=== PATIENT | female | born 1970 | race Caucasian/White ===

== ENCOUNTER 2017-01-27 00:49 | Emergency (ER) | payer BC ==
--- OUTSIDE RECORDS SUMMARY | 2017-01-27 01:27 | XMS REPORT | Continuity of Care Document ---
:1970 Author Organization [facility] ([facility]) [place] [address] Phone [phone] Care Team Providers Name Role Phone Ghazala Yepez Primary Care Provider [phone] Source Comments This disclosure is being made pursuant to the Care Everywhere program, applicable federal and state laws, and may not contain all informaitonavailable regarding this patient.[facility] ([facility]) Active Allergies and Adverse Reactions Not on File Current Medications Not on file Active Problems Not on file Social History Tobacco Use Types Packs/Day Years Used Date Never Assessed Plan of Care Health Maintenance Due Date Last Done Comments Hepatitis B Vaccine (1 of 3 - Primary Series) 1970 Tdap Vaccine 1981 Lipid Disorder Screening 1988 MMR Vaccine 1988 Td Vaccine 1988 Cervical Cancer Screening 2000 Mammogram 2010 Influenza Vaccine: Seasonal (#1) 03/19/2016 Results from Last 3 Months Not on file
--- NOTE | 2017-01-27 01:29 | ERNOTE ---
Upper Extremity HPI - Narrative Date of Service: 01/27/17 - General Time Seen by Provider: 01/27/17 01:21 Source: patient Exam Limitations: no limitations - Immun/Allergies/Home Medications Immunizations: IMMUNIZATION HX Immunizations Up to Date Yes History of Influenza Vaccine Yes Hx Pneumococcal Vaccination No Allergies/Adverse Reactions: Allergies Allergy/AdvReac Type Severity Reaction Status Date / Time doxycycline Allergy Unknown leg cramps Verified 08/20/15 07:04 Home Medications: HOME MEDICATIONS Calcium Carbonate [Calcium] 500 mg PO BID 01/30/15 [Last Taken Unknown] Cetirizine HCl/Pseudoephedrine [Zyrtec-D Tablet] 1 each PO BID 01/30/15 [Last Taken Unknown] Gabapentin [Neurontin] 600 mg PO TID 01/30/15 [Last Taken Unknown] Multivitamin [Poly-Vitamin] 1 each PO DAILY 01/30/15 [Last Taken Unknown] Omeprazole [Prilosec] 20 mg PO DAILY 01/30/15 [Last Taken Unknown] Ondansetron [Zofran Odt] 4 mg PO Q6H PRN #20 tab 01/31/15 [Last Taken Unknown] - History of Present Illness Narrative: Was riding a large horse when the horse stepped into a hole and rolled onto her. The horse then stood up and off of her. She immediately had pain in the posterior left chest and anterior lateral pectoralis area. It increased pain with deep inspiration. She denies any head injury, leg/pelvis pain, or LOC. Occurred: just prior to arrival Review of Systems - Review of Systems Constitutional: Present: no symptoms reported EYE: Present: no symptoms reported ENT: Present: no symptoms reported Respiratory: Present: no symptoms reported Cardiology: Present: no symptoms reported Gastrointestinal/Abdominal: Present: no symptoms reported Genitourinary: Present: no symptoms reported Skin: Present: no symptoms reported Neurological: Present: no symptoms reported - Patient's Past Medical History Patient History - Medical: No pertinent hx Patient History - Cardiac/Respiratory: No pertinent hx Patient History - Cancer: Cervical Patient History - Surgical Procedures: Colonoscopy, EGD Patient History - Other: None - Social History Living Situations: home Abuse History: No History of abuse Psych History: No pertinent hx Smoking Status: Former smoker Have you smoked in the past 12 months: No Do you dip or chew tobacco: No Alcohol Use: none Drug Use: none - Immunizations Immunizations Up to Date: Yes Hx Pneumococcal Vaccination: No History of Influenza Vaccine: Yes Physical Exam - Physical Exam General Appearance: Present: wd/wn, alert, mild distress Eye Exam: Normal inspection: bilateral Ears, Nose, Throat: Present: normal ENT inspection Neck: Present: normal inspection, nontender, supple Respiratory: Present: no respiratory distress, normal breath sounds, chest tenderness - Posterior left ankle of scapula tenderness and lateral pectoralis tenderness Cardiovascular/Chest: Present: regular rate, rhythm, no murmur Gastrointestinal/Abdominal: Present: normal bowel sounds, nontender Back Exam: Present: normal inspection, normal range of motion, no CVA tenderness , no vertebral tenderness Extremity Exam: Present: normal inspection, non-tender, normal range of motion, no edema Neurological Exam: Present: alert, oriented, no motor/sensory deficits ED Progress - Vital Signs Patient's Vital Signs:: I have reviewed the patient's vital signs. Vital Signs: Vital Signs 01/27/17 00:50 Temperature 37.3 C Pulse Rate 92 Respiratory 18 Rate Blood Pressure 152/99 O2 Sat by Pulse 98 Oximetry - X-Ray X-Ray #1 X-Ray: chest - No apparent fx or acute changes - Progress/Reassessment Chief Complaint: Upper Extremity Injury/Problem Plan - Plan Plan: Ibuprofen alternating with tylenol every 3 hours Oxycodone for breakthrough pain IS every 2 hours Follow up with PCP Departure Clinical Impression: Blunt trauma to chest - Departure Disposition: Home self-care Condition: Good Instructions: Blunt Chest Trauma Additional Instructions: Use alternating tylenol 1000 mg with ibuprofen 600 mg every 3 hours Use oxycodone 5 mg every 4 hours for breakthrough pain Use IS every 2 hours while awake. Follow up with PCP Return to ED if condition worsens. Referrals: Ghazala Yepez MD [Primary Care Provider] -
[2017-01-27] MEDS ORDERED: IBUPROFEN 400 MG TABLET PO ONE (01:56)
[2017-01-27] MEDS ORDERED: oxyCODONE HCL 5 MG TABLET PO ONE (01:56)
[2017-01-27] MEDS ORDERED: oxyCODONE HCL 5 MG TABLET ONE (02:08)
[2017-01-27] MEDS ORDERED: IBUPROFEN 400 MG TABLET ONE (02:09)
[2017-01-27 02:20] VITALS: BP 142/97
== END 2017-01-27 02:24 | disposition home or self-care (01) ==
LOC: ER 00:49
DX: S29.8XXA Other specified injuries of thorax, initial encounter (principal); Z85.41 Personal history of malignant neoplasm of cervix uteri; Z87.891 Personal history of nicotine dependence; V80.010A Animal-rider injured by fall from or being thrown from horse in noncollision accident, initial encounter; Y93.52 Activity, horseback riding

== ENCOUNTER 2019-07-07 11:07 | Inpatient (IN) ==
[2019-07-07] MEDS ORDERED: ONDANSETRON HCL/PF 2 MG/ML VIAL IV ONE (11:34)
[2019-07-07] MEDS ORDERED: NORMAL SALINE 1,000 ML IV ONE ×2 (11:34→13:12)
[2019-07-07] MEDS ORDERED: ACETAMINOPHEN 500 MG TABLET PO ONE (11:36)
[2019-07-07] MEDS ORDERED: MORPHINE SULFATE 4 MG/ML SYRG IV ONE ×4 (11:36→16:36)
--- NOTE | 2019-07-07 11:36 | ERNOTE ---
Abdominal HPI - Narrative Date of Service: 07/07/19 - General Chief Complaint: Abdominal Pain Time Seen by Provider: 07/07/19 11:20 Source: patient, family Exam Limitations: clinical condition - Immun/Allergies/Home Medications Immunizatons: IMMUNIZATION HX Immunizations Up to Date Yes History of Influenza Vaccine Yes Hx Pneumococcal Vaccination No Allergies/Adverse Reactions: Allergies doxycycline Allergy (Unknown, Verified 07/07/19 11:22) leg cramps gentamicin Allergy (Verified 07/07/19 11:22) Home Medications: HOME MEDICATIONS Calcium Carbonate [Calcium] 500 mg PO BID 01/30/15 [Last Taken 07/04/19] biotin 10 mg tablet 10 mg PO DAILY 02/02/19 [Last Taken 07/04/19] melatonin 10 mg tablet 10 mg PO DAILY 02/02/19 [Last Taken 07/04/19] multivitamin 1 tab PO DAILY 02/02/19 [Last Taken 07/06/19] ropinirole 1 mg tablet 1 mg PO DAILY #30 tab 04/08/19 [Last Taken 07/04/19] gabapentin 300 mg capsule 900 mg PO TID 30 Days #270 cap 05/08/19 [Last Taken 07/04/19] trazodone 50 mg tablet 50 mg PO HS #30 tab 06/10/19 [Last Taken 07/04/19] nxdsyxkysa-cjitcknlrdeyl-patzvwhv 50 mg-300 mg-40 mg capsule See Rx Instructions PO .COMPLEX PRN #30 cap 06/17/19 [Last Taken 07/07/19] diphenhydramine HCl 50 mg/mL injection solution 50 mg IM PRN PRN #1 ml 07/07/19 [Last Taken 07/04/19] ketorolac 30 mg/mL (1 mL) injection solution 30 mg IM DAILY PRN #1 ml 07/07/19 [Last Taken 07/07/19] metoclopramide HCl 5 mg/mL injection solution 10 mg IM Q8H PRN #2 ml 07/07/19 [Last Taken 07/07/19] promethazine 25 mg/mL injection solution 25 mg IM DAILY PRN #1 ml 07/07/19 [Last Taken 07/07/19] - Pain Score Pain Score #1 Pain Score: 10 Abdominal Pain Onset Location: generalized abdomen - History of Present Illness Narrative: The patient is a 48 year old female who presents for diffuse abdominal pain which has been present since Saturday. There are associated symptoms of fatigue, nausea and fever. The patient reports pain to [facility], 05/28. There are no alleviating factors. There are aggravating factors of activity. Previous treatments have included: Toradol, Phenergan and Benadryl without improvement. The past medical history includes: abdominal migraines, cervical cancer and sleep apnea. The social history is positive for former smoker. The patient has had no known ill contacts. Review of Systems - Review of Systems Constitutional: Present: fever, chills, fatigue EYE: Present: no symptoms reported ENT: Present: no symptoms reported. Absent: ear pain, nasal drainage, sore throat Respiratory: Present: no symptoms reported. Absent: shortness of breath, cough Cardiology: Present: no symptoms reported. Absent: chest pain Gastrointestinal/Abdominal: Present: nausea, abdominal pain, eating less, drinking less. Absent: vomiting, diarrhea Genitourinary: Present: decreased urinary output. Absent: dysuria Musculoskeletal: Present: no symptoms reported. Absent: back pain Skin: Present: no symptoms reported. Absent: rash Neurological: Present: headache All Other Systems: All systems neg except as marked Medical History (Last Reviewed 07/07/19 @ 11:38 by ALFREDO Amador) Abdominal migraine (Acute) Onset Date: ~2009 Back pain Onset Date: Unknown Cervical cancer Onset Date: ~2009 Neck pain Onset Date: Unknown Sleep apnea Onset Date: Unknown Abnormal Pap smear of cervix Onset Date: ~11/25/09 Cervical neoplasm Onset Date: ~2009 Irregular menses Onset Date: Unknown Surgical History: Surgical History (Last Reviewed 07/07/19 @ 11:38 by ALFREDO Amador) History of wisdom tooth extraction Onset Date: Unknown Family History: Family History (Last Reviewed 07/07/19 @ 11:38 by ALFREDO Amador) Father Rheumatoid arthritis Mother Myasthenia gravis Brother Common migraine Social History: (Last Reviewed 07/07/19 @ 11:38 by ALFREDO Amador) Social History: Marital status: current occupational status: employed current occupation: Enumerator [employer] Highest education level completed: high school graduate Service: No Tobacco: Smoking Status: Former smoker Alcohol: alcohol intake: former Substance Use: substance use type: does not use Dietary Habits: caffeine: Yes Physical Exam - Physical Exam General Appearance: Present: wd/wn, alert, moderate distress Head Exam: Present: normal inspection Eye Exam: Normal inspection: bilateral Neck: Present: normal inspection Respiratory: Present: no respiratory distress, normal breath sounds, no accessory muscle use, lungs clear Cardiovascular/Chest: Present: no murmur, tachycardia Gastrointestinal/Abdominal: Present: normal bowel sounds, no organomegaly, tenderness - diffuse, moderate, distended, guarding - LUQ, LLQ, suprapubic Neurological Exam: Present: alert, oriented, normal mood/affect, no motor/sensory deficits Skin Exam: Present: warm/dry, pallor Progress - Date and Time Seen: Date and Time: 07/07/19 11:50 Tylenol changed from po or IV due to nausea. 07/07/19 12:38 Patient states pain improved and denies nausea. Inquired regarding patients ovarian ca history, reports treatment with chemo and radiation without surgical intervention, 2007. 07/07/19 13:12 In to discuss results of testing available with patient. Due to no definitive signs of infection with UA results or abdominal xray will proceed with CT abd/pelvis for further evaluation for explanation of profound abdominal pain. 07/07/19 16:12 Results of imaging discussed with patient. Discussed case with , will admit due to sepsis, DM, hyponatremia and ileitis. Will treat with cipro and flagyl due to bowel inflammation. - Results and Orders Patient's Lab Results:: I have reviewed the patient's lab results. - Vital Signs Patient's Vital Signs:: I have reviewed the patient's vital signs. Vital Signs: Vital Signs 07/07/19 11:18 Temperature 38.8 C H Pulse Rate 139 H Respiratory Rate 16 Blood Pressure 126/78 O2 Sat by Pulse Oximetry 95 - X-Ray X-Ray #1 X-Ray: abdomen Interpretation: Reviewed by me X-ray Comments: IMPRESSION: MODERATE FECAL RETENTION WITHOUT EVIDENCE FOR OBSTRUCTION. Electronically signed by Ignacio Thompson D.O.. - CT/Ultrasound CT/Ultrasound Narrative: IMPRESSION: 1. CIRCUMFERENTIAL THICKENING OF THE TERMINAL ILEUM WITH SURROUNDING INFLAMMATION. FINDINGS CONCERNING FOR POTENTIAL CROHN'S DISEASE. 2. MODERATE FECAL RETENTION WITHOUT EVIDENCE FOR OBSTRUCTION. 3. DIFFUSE FATTY INFILTRATION OF THE LIVER. 4. OTHERWISE NORMAL EXAM. Electronically signed by Ignacio Thompson D.O.. - Progress/Reassessment Chief Complaint: Abdominal Pain Departure Clinical Impression: Hyponatremia Sepsis Qualifiers: Sepsis type: sepsis due to unspecified organism Sepsis acute organ dysfunction status: unspecified Qualified Code(s): A41.9 - Sepsis, unspecified organism Diabetes mellitus Qualifiers: Diabetes mellitus type: type 2 Diabetes mellitus termite exterminator helper insulin use: without termite exterminator helper use Diabetes mellitus complication status: with hyperglycemia Qualified Code(s): E11.65 - Type 2 diabetes mellitus with hyperglycemia Ileitis, terminal Qualifiers: Digestive disease complication type: unspecified complication Qualified Code(s): K50.019 - Crohn's disease of small intestine with unspecified complications - Departure Disposition: Still a patient Condition: Stable
[2019-07-07] MEDS ORDERED: ACETAMINOPHEN 1,000 MG/100 ML BTL IV ONE (11:49)
[2019-07-07 11:56] LABS: Hematocrit 32.5 % (37.0-47.0); Mean Cell Volume 92.6 fl (78-100); Mean Corpuscular Hemoglobin 31.3 pg (27-31); Mean Corpuscular Hgb Conc 33.8 g/dl (32-36); Mean Platelet Volume 9.7 fl (8-12.5); Platelet Count 129 K/mm3 (150-450); Red Blood Count 3.51 M/mm3 (4.2-5.4); Red Cell Distribution Width 15.4 % (11.5-14.0); White Blood Count 10.6 K/mm3 (4.0-10.5)
[2019-07-07 11:59] LABS: Total Cells Counted 100
[2019-07-07 12:07] LABS: Albumin * 2.7 gm/dl (3.4-5.0); Anion Gap 19.6 mmol/L (6.8-13.8); BUN/Creatinine Ratio 7.9 (9.0-21.6); Bilirubin, Total 0.8 mg/dL (0.0-1.1); Ca. Corrected For Albumin 9.6 mg/dL (8.4-10.2); Calcium * 8.9 mg/dL (7.9-10.9); Carbon Dioxide 17.8 mmol/L (24-32.6); Potassium 4.4 mmol/L (3.4-4.6); Total Protein 7.7 gm/dL (6.2-8.2)
[2019-07-07 12:23] LABS: Atypical (Reactive) Lymph 3 % (0-2); Band 4 % (0-2.0); Lymphocyte 22 % (20-51); Monocyte 6 % (0-9); Neutrophil 65 % (42-75); Neutrophil # 6.9 K/mm3 (1.3-6.0); Platelet Estimate Normal (NORMAL); RBC Morphology Normal (NORMAL)
[2019-07-07] MEDS ORDERED: cefTRIAXone SODIUM 1,000 MG/100 ML BAG IV ONE (12:46)
[2019-07-07 13:00] LABS: Urine Bilirubin 1 mg/dl (NEGATIVE); Urine Ketone Large mg/dL (NEGATIVE); Urine Nitrite Negative (NEGATIVE); Urine Protein 30 mg/dL (NEGATIVE); Urine Urobilinogen Normal (NORMAL)
[2019-07-07 13:04] LABS: Urine Blood 5 /ul (NEGATIVE)
[2019-07-07 13:05] LABS: Urine Appearance Clear (CLEAR); Urine Color Yellow
[2019-07-07 13:06] LABS: Urine Bacteria None Seen; Urine Hyaline Cast 0-5 /LPF; Urine RBC 0-5 /hpf (0-5); Urine WBC TRACE /hpf (0-5)
[2019-07-07] MEDS ORDERED: DIATRIZOATE MEGLUMINE, SODIUM 30 ML BTL PO ONE (13:09)
[2019-07-07] MEDS ORDERED: CIPROFLOXACIN IN 5 % DEXTROSE 400 MG/200 ML BAG IV SCH (16:15)
[2019-07-07] MEDS ORDERED: metroNIDAZOLE/SODIUM CHLORIDE 500 MG/100 ML BAG IV SCH (16:15)
[2019-07-07 16:23] LABS: Hemoglobin A1C 12.7 % (4.00-6.0)
[2019-07-07] MEDS ORDERED: ONDANSETRON HCL/PF 2 MG/ML VIAL IV PRN (16:38)
[2019-07-07 17:31] LABS: Anion Gap 14.8 mmol/L (6.8-13.8); BUN/Creatinine Ratio 6.4 (9.0-21.6); Calcium * 8.1 mg/dL (7.9-10.9); Carbon Dioxide 20.2 mmol/L (24-32.6)
[2019-07-07] MEDS ORDERED: MORPHINE SULFATE 2 MG/ML DISP.SYRIN IV PRN (18:00)
[2019-07-07] MEDS ORDERED: METOCLOPRAMIDE HCL 5 MG/ML VIAL IV ONE (20:08)
[2019-07-07] MEDS ORDERED: diphenhydrAMINE HCL 50 MG/ML VIAL IV ONE (20:09)
[2019-07-07] MEDS ORDERED: KETOROLAC TROMETHAMINE 30 MG/ML VIAL IV ONE (20:09)
[2019-07-07] MEDS ORDERED: SUMAtriptan SUCCINATE 6 MG/0.5 ML VIAL SC ONE (20:10)
[2019-07-07] MEDS ORDERED: INSULIN REGULAR, HUMAN 100 UNITS/ML VIAL SC ONE (20:14)
[2019-07-07] MEDS: INSULIN LISPRO 100 UNITS/ML VIAL SC SCH (21:24)
[2019-07-07] MEDS: HYDROmorphone HCL 1 MG/ML DISP.SYRIN IV PRN (23:36)
[2019-07-07] MEDS: metroNIDAZOLE/SODIUM CHLORIDE 500 MG/100 ML BAG IV SCH (23:41)
[2019-07-08] MEDS: NORMAL SALINE 1,000 ML IV PRN ×3 (00:36→16:55)
[2019-07-08] MEDS ORDERED: ACETAMINOPHEN 500 MG TABLET PO PRN (04:04)
[2019-07-08] MEDS: HYDROmorphone HCL 1 MG/ML DISP.SYRIN IV PRN ×5 (04:20→23:36)
[2019-07-08] MEDS: CIPROFLOXACIN IN 5 % DEXTROSE 400 MG/200 ML BAG IV SCH ×2 (04:50→17:04)
[2019-07-08] MEDS: INSULIN LISPRO 100 UNITS/ML VIAL SC SCH ×4 (07:39→21:07)
[2019-07-08 08:19] LABS: Hematocrit 27.4 % (37.0-47.0); Hemoglobin 8.9 gm/dL (12.5-16.0); Mean Cell Volume 94.8 fl (78-100); Mean Corpuscular Hemoglobin 30.8 pg (27-31); Mean Corpuscular Hgb Conc 32.5 g/dl (32-36); Mean Platelet Volume 9.2 fl (8-12.5); Red Blood Count 2.89 M/mm3 (4.2-5.4); Red Cell Distribution Width 15.3 % (11.5-14.0); White Blood Count 9.3 K/mm3 (4.0-10.5)
[2019-07-08 08:23] LABS: Platelet Count 94 K/mm3 (150-450)
[2019-07-08 08:24] LABS: Total Cells Counted 100
[2019-07-08 08:32] LABS: Albumin * 1.8 gm/dl (3.4-5.0); Anion Gap 12.1 mmol/L (6.8-13.8); BUN/Creatinine Ratio 9.1 (9.0-21.6); Bilirubin, Total 0.4 mg/dL (0.0-1.1); Ca. Corrected For Albumin 9.4 mg/dL (8.4-10.2); Carbon Dioxide 21.9 mmol/L (24-32.6)
[2019-07-08] MEDS: metroNIDAZOLE/SODIUM CHLORIDE 500 MG/100 ML BAG IV SCH ×2 (08:56→18:10)
[2019-07-08 09:07] LABS: Atypical (Reactive) Lymph 2 % (0-2); Band 17 % (0-2.0); Immature Granulocyte 3 (0-1); Lymphocyte 15 % (20-51); Monocyte 2 % (0-9); Neutrophil 61 % (42-75); Neutrophil # 5.7 K/mm3 (1.3-6.0); Platelet Estimate Decreased (NORMAL)
[2019-07-08 09:08] LABS: Hypochromia Trace; Polychromasia Trace
[2019-07-08] MEDS ORDERED: INSULIN GLARGINE,HUM.REC.ANLOG 100 UNITS/ML VIAL SC SCH (10:00)
[2019-07-08] MEDS: ACETAMINOPHEN 325 MG TABLET PO PRN ×3 (10:11→23:36)
--- NOTE | 2019-07-08 14:17 | HP ---
Chief Complaint - Chief Complaint Date of Service: 07/08/19 Time of Service: 14:08 Chief Complaint: Abdominal pain History of Present Illness: 48-year-old female with history of abdominal migraines presented to the ER with 3 days worsening abdominal pain. Patient had endorsed anorexia, fevers, some nausea. CT of her abdomen showed circumferential thickening of her terminal ileum with inflammation, concern for possible Crohn's disease. She did have fatty liver infiltrate, as well as moderate stool in her sigmoid colon without evidence of obstruction. Lab work showed her to have a white count 10.6 with 4 bands. Lactic acid initially was 2.2 that went down to 1.8 after 2 L normal saline bolus. She was tachycardic and febrile at the time of initial presentation. Patient was started on Cipro and Flagyl for likely colitis. Patient was also found to be hyponatremic with a serum sodium of 125 and hyperglycemic with a glucose of greater than 300. Corrected sodium was 129. A1c was checked which showed her to undiagnosed diabetic with a 12.7. Patient was admitted to the floor for sepsis with likely colitis, new onset diabetes, and hyponatremia. Medical History (Last Reviewed 07/07/19 @ 17:25 by Arianna Newell RN) Abdominal migraine (Acute) Onset Date: ~2009 Back pain Onset Date: Unknown Cervical cancer Onset Date: ~2009 Neck pain Onset Date: Unknown Sleep apnea Onset Date: Unknown Abnormal Pap smear of cervix Onset Date: ~11/25/09 Cervical neoplasm Onset Date: ~2009 Irregular menses Onset Date: Unknown Surgical History: Surgical History (Last Reviewed 07/07/19 @ 17:25 by Arianna eNwell RN) History of wisdom tooth extraction Onset Date: Unknown Family History: Family History (Last Reviewed 07/07/19 @ 17:25 by Arianna Newell RN) Father Rheumatoid arthritis Mother Myasthenia gravis Brother Common migraine Social History: (Last Reviewed 07/07/19 @ 15:47 by Tonya Chou RN) Social History: Marital status: current occupational status: employed current occupation: Enumerator [employer] Highest education level completed: high school graduate Service: No Tobacco: Smoking Status: Former smoker Alcohol: alcohol intake: former Substance Use: substance use type: does not use Dietary Habits: caffeine: Yes Review Of Systems (GEN) - Review of Systems Generalized/Overall Review: Present: Weakness, Chills, Fever, Fatigue EENTM: Present: No Symptoms Reported Respiratory: Absent: Cough, Shortness of Breath Cardiac: Absent: Chest Pain, Edema, Palpitations Abdominal: Present: Nausea, Abdominal Pain. Absent: Vomiting, Constipation, Diarrhea Genitourinary: Present: No Symptoms Reported Musculoskeletal: Present: No Symptoms Reported Neurological: Present: No Symptoms Reported Skin: Present: No Symptoms Reported Immunizations: IMMUNIZATION HX Immunizations Up to Date Yes History of Influenza Vaccine Yes Hx Pneumococcal Vaccination No Allergies/Adverse Reactions: Allergies Allergy/AdvReac Type Severity Reaction Status Date / Time doxycycline Allergy Unknown leg cramps Verified 07/07/19 11:22 gentamicin Allergy Verified 07/07/19 11:22 Home Medications: HOME MEDICATIONS Calcium Carbonate [Calcium] 500 mg PO BID 01/30/15 [Last Taken 07/04/19] biotin 10 mg tablet 10 mg PO DAILY 02/02/19 [Last Taken 07/04/19] melatonin 10 mg tablet 10 mg PO DAILY 02/02/19 [Last Taken 07/04/19] multivitamin 1 tab PO DAILY 02/02/19 [Last Taken 07/06/19] ropinirole 1 mg tablet 1 mg PO DAILY #30 tab 04/08/19 [Last Taken 07/04/19] gabapentin 300 mg capsule 900 mg PO TID 30 Days #270 cap 05/08/19 [Last Taken 07/04/19] trazodone 50 mg tablet 50 mg PO HS #30 tab 06/10/19 [Last Taken 07/04/19] mrkdldttvl-okwfjaphargpv-wwlkutye 50 mg-300 mg-40 mg capsule See Rx Instructions PO .COMPLEX PRN #30 cap 06/17/19 [Last Taken 07/07/19] diphenhydramine HCl 50 mg/mL injection solution 50 mg IM PRN PRN #1 ml 07/07/19 [Last Taken 07/04/19] ketorolac 30 mg/mL (1 mL) injection solution 30 mg IM DAILY PRN #1 ml 07/07/19 [Last Taken 07/07/19] metoclopramide HCl 5 mg/mL injection solution 10 mg IM Q8H PRN #2 ml 07/07/19 [Last Taken 07/07/19] promethazine 25 mg/mL injection solution 25 mg IM DAILY PRN #1 ml 07/07/19 [Last Taken 07/07/19] Exam - Exam Vital Signs: Vital Signs - Last Taken Temp 37.2 C 07/08/19 12:35 Pulse 120 H 07/08/19 12:35 Resp 18 07/08/19 12:35 BP 133/69 07/08/19 11:20 Pulse Ox 94 07/08/19 13:51 Constitutional: Present: Alert, Oriented x3, Moderate distress ENT Exam: Present: hearing grossly normal, dry mucous membranes Eye Exam: bilateral eye: normal inspection, PERRL, EOMI Neck: Present: non-tender, supple Back Exam: Present: no CVA tenderness Breasts: Present: Exam deferred Respiratory: Present: lungs clear, normal breath sounds Cardiovascular/Chest: Present: tachycardia. Absent: systolic murmur Abdomen: Present: guarding, rigidity, rebound tenderness /Rectal: Present: Exam deferred Skin Exam: Present: diaphoresis Appearance: Present: appropriate appearance, appropriate insight Eye contact: Present: cooperative, good eye contact Thoughts: Present: normal thought pattern, normal mood /affect Diagnostic Studies: Abnormal Lab Results 07/07/19 07/07/19 07/08/19 Range/Units 11:50 17:15 08:16 RBC 2.89 L (4.2-5.4) M/mm3 Hgb 8.9 L (12.5-16.0) gm/dL Hct 27.4 L (37.0-47.0) % RDW 15.3 H (11.5-14.0) % Plt Count 94 L (150-450) K/mm3 Band Neuts % (Manual) 17 H (0-2.0) % Lymphocytes % (Manual) 15 L (20-51) % Immature Granulocytes 3 H (0-1) Lymphocytes # (Manual) 1.4 L (1.5-3.5) k/mm3 Platelet Estimate Decreased L (NORMAL) Sodium 124 L (132-142) mmol/L Plasma Sodium 128 L (130-142) mmol/L Chloride 93 L (97-106) mmol/L Carbon Dioxide 20.2 L (24-32.6) mmol/L Anion Gap 14.8 H (6.8-13.8) mmol/L BUN/Creatinine Ratio 6.4 L (9.0-21.6) Random Glucose 321 H (70-110) mg/dL Hemoglobin A1c 12.7 H (4.00-6.0) % ALT (19-67) U/L Total Protein (6.2-8.2) gm/dL Albumin (3.4-5.0) gm/dl 07/08/19 Range/Units 08:16 RBC (4.2-5.4) M/mm3 Hgb (12.5-16.0) gm/dL Hct (37.0-47.0) % RDW (11.5-14.0) % Plt Count (150-450) K/mm3 Band Neuts % (Manual) (0-2.0) % Lymphocytes % (Manual) (20-51) % Immature Granulocytes (0-1) Lymphocytes # (Manual) (1.5-3.5) k/mm3 Platelet Estimate (NORMAL) Sodium 126 L (132-142) mmol/L Plasma Sodium 129 L (130-142) mmol/L Chloride 96 L (97-106) mmol/L Carbon Dioxide 21.9 L (24-32.6) mmol/L Anion Gap (6.8-13.8) mmol/L BUN/Creatinine Ratio (9.0-21.6) Random Glucose 281 H (70-110) mg/dL Hemoglobin A1c (4.00-6.0) % ALT 18 L (19-67) U/L Total Protein 6.0 L (6.2-8.2) gm/dL Albumin 1.8 L (3.4-5.0) gm/dl Microbiology 07/07/19 12:25 Blood Culture - Preliminary Blood NO GROWTH 24 HOURS 07/07/19 11:50 Blood Culture - Preliminary Blood NO GROWTH 24 HOURS Laboratory Results WBC 9.3 K/mm3 (4.0-10.5) 07/08/19 08:16 RBC 2.89 M/mm3 (4.2-5.4) L 07/08/19 08:16 Hgb 8.9 gm/dL (12.5-16.0) L 07/08/19 08:16 Hct 27.4 % (37.0-47.0) L 07/08/19 08:16 MCV 94.8 fl (78-100) 07/08/19 08:16 MCH 30.8 pg (27-31) 07/08/19 08:16 MCHC 32.5 g/dl (32-36) 07/08/19 08:16 RDW 15.3 % (11.5-14.0) H 07/08/19 08:16 Plt Count 94 K/mm3 (150-450) L 07/08/19 08:16 MPV 9.2 fl (8-12.5) 07/08/19 08:16 Neutrophils % (Manual) 61 % (42-75) 07/08/19 08:16 Band Neuts % (Manual) 17 % (0-2.0) H 07/08/19 08:16 Lymphocytes % (Manual) 15 % (20-51) L 07/08/19 08:16 Monocytes % (Manual) 2 % (0-9) 07/08/19 08:16 Immature Granulocytes 3 (0-1) H 07/08/19 08:16 Neutrophils # (Manual) 5.7 K/mm3 (1.3-6.0) 07/08/19 08:16 Lymphocytes # (Manual) 1.4 k/mm3 (1.5-3.5) L 07/08/19 08:16 Monocytes # (Manual) 0.2 k/mm3 (0.0-1.0) 07/08/19 08:16 Atypic/Reactive Lymphs 2 % (0-2) 07/08/19 08:16 Toxic Granulation Guitar Repair Technician 07/08/19 08:16 Platelet Estimate Decreased (NORMAL) L 07/08/19 08:16 RBC Morphology Normal (NORMAL) 07/07/19 11:50 Polychromasia Trace 07/08/19 08:16 Hypochromasia Trace 07/08/19 08:16 Sodium 126 mmol/L (132-142) L 07/08/19 08:16 Plasma Sodium 129 mmol/L (130-142) L 07/08/19 08:16 Potassium 4.0 mmol/L (3.4-4.6) 07/08/19 08:16 Chloride 96 mmol/L (97-106) L 07/08/19 08:16 Carbon Dioxide 21.9 mmol/L (24-32.6) L 07/08/19 08:16 Anion Gap 12.1 mmol/L (6.8-13.8) 07/08/19 08:16 BUN 8 mg/dL (3-23) D 07/08/19 08:16 Creatinine 0.88 mg/dL (0.4-1.4) 07/08/19 08:16 Est GFR (Non-Af Amer) 73 mL/min (60-130) 07/08/19 08:16 BUN/Creatinine Ratio 9.1 (9.0-21.6) 07/08/19 08:16 Random Glucose 281 mg/dL (70-110) H 07/08/19 08:16 Mean Blood Glucose 337 mg/dL 07/07/19 11:50 Hemoglobin A1c 12.7 % (4.00-6.0) H 07/07/19 11:50 Lactic Acid, Venous 1.8 mmol/L (0.4-2.0) 07/07/19 14:46 Calcium 8.0 mg/dL (7.9-10.9) 07/08/19 08:16 Calcium Adj for Albumin 9.4 mg/dL (8.4-10.2) 07/08/19 08:16 Total Bilirubin 0.4 mg/dL (0.0-1.1) 07/08/19 08:16 AST 45 U/L (0-48) 07/08/19 08:16 ALT 18 U/L (19-67) L 07/08/19 08:16 Alkaline Phosphatase 98 U/L (50-170) 07/08/19 08:16 Total Protein 6.0 gm/dL (6.2-8.2) L 07/08/19 08:16 Albumin 1.8 gm/dl (3.4-5.0) L 07/08/19 08:16 Amylase 14 U/L (25-115) L 07/07/19 11:50 Lipase 62 U/L (73-393) L 07/07/19 11:50 Urine Color Yellow 07/07/19 12:38 Urine Appearance Clear (CLEAR) 07/07/19 12:38 Urine pH 6.0 pH (5.0-7.0) 07/07/19 12:38 Ur Specific [place] 1.020 SP.GR. (1.005-1.010) 07/07/19 12:38 Urine Protein 30 mg/dL (NEGATIVE) H 07/07/19 12:38 Urine Glucose (UA) 500 mg/dL (NEGATIVE) H 07/07/19 12:38 Urine Ketones Large mg/dL (NEGATIVE) 07/07/19 12:38 Urine Blood 5 /ul (NEGATIVE) H 07/07/19 12:38 Urine Nitrate Negative (NEGATIVE) 07/07/19 12:38 Urine Bilirubin 1 mg/dl (NEGATIVE) H 07/07/19 12:38 Urine Ictotest Negative (NEGATIVE) 07/07/19 12:38 Prot Sulfosalicylic Acd 1+ mg/dL (0) 07/07/19 12:38 Urine Urobilinogen Normal EU/dl (NORMAL) 07/07/19 12:38 Ur Leukocyte Esterase Negative /ul (NEGATIVE) 07/07/19 12:38 Urine RBC 0-5 /hpf (0-5) 07/07/19 12:38 Urine WBC Trace /hpf (0-5) H 07/07/19 12:38 Ur Epithelial Cells 0-5 /hpf (0-5) 07/07/19 12:38 Urine Bacteria None seen (NONE) 07/07/19 12:38 Hyaline Casts 0-5 /LPF (NONE) H 07/07/19 12:38 Fine Granular Casts 5-10 /LPF (NONE) H 07/07/19 12:38 Coarse Granular Casts 5-10 /LPF (NONE) H 07/07/19 12:38 Urine Culture Comments No culture indicated 07/07/19 12:38 Assessment/Plan - Narrative Narrative: 48-year-old female with abdominal pain, initially thought to be colitis. Overnight patient had fairly decent pain control with IV pain medicine but progressed throughout today. CT scan of her belly reviewed and majority of her pain was thought to be from possible terminal ileum inflammation/possible Crohn's disease. She was started on Flagyl and Cipro and the majority of her labs improved with fluid resuscitation and antibiotics. Her bands did increase up from 4 to 17 administration and she continued to be febrile throughout the day. She remained tachycardic despite ongoing normal saline. Repeat lactic acid was normal. Preliminary blood cultures negative. abdominal flat and upright obtained due to change in abdominal exam this evening. It did not show any free air. Procalcitonin was ordered which was significantly elevated at greater than 14. General surgery was called for possible peritonitis but due to abnormal terminal ileum finding on CT, Dr. Mejia thought it best that she be transferred up to a higher level of care facility to address this possibility if needed. Currently reaching out to [place] [facility] for likely transfer. Continue IV pain medication. Patient will likely need broader spectrum antibiotics but will discuss this with hospitalist from [place] [facility] prior to transfer. Patient currently on clear liquid diet but is only had sips of water since being admitted. - Assessment/Plan (1) Acute abdomen Problem: Acute (2) Sepsis Problem: Acute Qualifiers: Sepsis type: sepsis due to unspecified organism Sepsis acute organ dysfunction status: unspecified Qualified Code(s): A41.9 - Sepsis, unspecified organism (3) Colitis Problem: Suspected (4) Dehydration Problem: Acute (5) Diabetes mellitus Problem: Acute Qualifiers: Diabetes mellitus type: type 2 Diabetes mellitus intermodal truck driver insulin use: without intermodal truck driver use Diabetes mellitus complication status: with hyperglycemia Qualified Code(s): E11.65 - Type 2 diabetes mellitus with hyperglycemia (6) Hyponatremia Problem: Acute
[2019-07-08] MEDS: MORPHINE SULFATE 2 MG/ML DISP.SYRIN IV PRN ×2 (19:36→21:45)
--- NOTE | 2019-07-08 23:45 | DS ---
Transfer Discharge Summary - Diagnosis(s)/Problems (1) Acute abdomen Problem: Acute (2) Sepsis Problem: Acute (3) Colitis Problem: Suspected (4) Dehydration Problem: Acute (5) Diabetes mellitus Problem: Acute (6) Hyponatremia Problem: Acute - Course Description of Stay: 48-year-old female with abdominal pain transferred to [facility] for suspected acute abdomen. Patient initially presented with 3 days of progressively worsening abdominal pain, low-grade fevers, anorexia. CT scan upon admission showed terminal ileum thickening and inflammation, suspect possible Crohn's. Patient was started on Cipro and Flagyl due to this finding. She acutely w orsened the next day with her belly becoming more rigid/distended. Abd XR obtained which did not show any free air. Procalcitonin was obtained which came back 14.8, suspected intra-abdominal infection from this. Concern for peritonitis. Case was discussed with Dr. Melgoza who accepted the transfer. Procedures Performed: none - Results and Findings Results and Findings: Laboratory Results - last 24 hr 07/08/19 07/08/19 07/08/19 08:16 08:16 16:00 WBC 9.3 RBC 2.89 L Hgb 8.9 L Hct 27.4 L MCV 94.8 MCH 30.8 MCHC 32.5 RDW 15.3 H Plt Count 94 L MPV 9.2 Neutrophils % (Manual) 61 Band Neuts % (Manual) 17 H Lymphocytes % (Manual) 15 L Monocytes % (Manual) 2 Immature Granulocytes 3 H Neutrophils # (Manual) 5.7 Lymphocytes # (Manual) 1.4 L Monocytes # (Manual) 0.2 Atypic/Reactive Lymphs 2 Toxic Granulation Strategic Planning Consultant Platelet Estimate Decreased L Polychromasia Trace Hypochromasia Trace Sodium 126 L Plasma Sodium 129 L Potassium 4.0 Chloride 96 L Carbon Dioxide 21.9 L Anion Gap 12.1 BUN 8 D Creatinine 0.88 Est GFR (Non-Af Amer) 73 BUN/Creatinine Ratio 9.1 Random Glucose 281 H Lactic Acid, Venous 1.3 Calcium 8.0 Calcium Adj for Albumin 9.4 Total Bilirubin 0.4 AST 45 ALT 18 L Alkaline Phosphatase 98 Total Protein 6.0 L Albumin 1.8 L Procalcitonin 07/08/19 18:31 WBC RBC Hgb Hct MCV MCH MCHC RDW Plt Count MPV Neutrophils % (Manual) Band Neuts % (Manual) Lymphocytes % (Manual) Monocytes % (Manual) Immature Granulocytes Neutrophils # (Manual) Lymphocytes # (Manual) Monocytes # (Manual) Atypic/Reactive Lymphs Toxic Granulation Platelet Estimate Polychromasia Hypochromasia Sodium Plasma Sodium Potassium Chloride Carbon Dioxide Anion Gap BUN Creatinine Est GFR (Non-Af Amer) BUN/Creatinine Ratio Random Glucose Lactic Acid, Venous Calcium Calcium Adj for Albumin Total Bilirubin AST ALT Alkaline Phosphatase Total Protein Albumin Procalcitonin 14.83 H - Medications Medications: Active Medications Acetaminophen (Tylenol) 650 mg PO Q6H PRN PRN Reason: Mild pain (pain scale 1-3) Stop: 08/07/19 09:53 Last Admin: 07/08/19 17:01 Dose: 650 mg Documented by: Hydromorphone HCl (Dilaudid) 1 mg IV Q4H PRN PRN Reason: pain Stop: 08/06/19 23:22 Last Admin: 07/08/19 17:44 Dose: 1 mg Documented by: Sodium Chloride (Sodium Chloride 0.9%) 1,000 mls @ 126 mls/hr IV .Q7H57M PRN PRN Reason: HYDRATION Stop: 08/06/19 16:37 Last Admin: 07/08/19 16:55 Dose: 126 mls/hr Documented by: Ciprofloxacin/Dextrose (Cipro) 400 mg in 200 mls @ 200 mls/hr IV Q12H [facility]; Protocol Stop: 08/07/19 04:31 Last Infusion: 07/08/19 18:04 Dose: Infused Documented by: Metronidazole (Flagyl) 500 mg in 100 mls @ 100 mls/hr IV Q8H [facility]; Protocol Stop: 08/07/19 00:31 Last Admin: 07/08/19 18:10 Dose: 100 mls/hr Documented by: Insulin Glargine (Lantus) 20 units SC DAILY [facility] Stop: 08/07/19 10:01 Last Admin: 07/08/19 10:11 Dose: 20 units Documented by: Insulin Human Lispro (Humalog) 0 units SC ACHSINS [facility]; Protocol Stop: 08/06/19 21:01 Last Admin: 07/08/19 21:07 Dose: 8 units Documented by: Morphine Sulfate (Morphine Sulfate) 2 mg IV Q2H PRN PRN Reason: Pain Stop: 08/07/19 18:55 Last Admin: 07/08/19 21:45 Dose: 2 mg Documented by: Ondansetron HCl (Zofran) 4 mg IV Q6H PRN PRN Reason: Nausea And Vomiting Stop: 08/06/19 16:39 Last Admin: 07/08/19 17:45 Dose: 4 mg Documented by: Discontinued Medications Acetaminophen (Tylenol) 1,000 mg PO ONCE ONE Stop: 07/07/19 11:37 Last Admin: 07/07/19 11:45 Dose: Not Given Documented by: Acetaminophen (Tylenol) 1,000 mg PO Q8H PRN PRN Reason: Fever Stop: 08/07/19 04:05 Last Admin: 07/08/19 04:20 Dose: 1,000 mg Documented by: Diatrizoate Meglum/Diatrizoate Sod (Gastrografin Solution) 60 ml PO ONCE ONE Stop: 07/07/19 13:10 Last Admin: 07/07/19 13:28 Dose: 60 ml Documented by: Diphenhydramine HCl (Benadryl) 50 mg IV ONCE ONE Stop: 07/07/19 20:10 Last Admin: 07/07/19 20:58 Dose: 50 mg Documented by: Sodium Chloride (Sodium Chloride 0.9%) 1,000 mls @ 999 mls/hr IV .Q1H1M ONE Stop: 07/07/19 12:34 Last Infusion: 07/07/19 13:03 Dose: Infused Documented by: Acetaminophen (Ofirmev) 1,000 mg in 100 mls @ 400 mls/hr IV ONCE ONE Stop: 07/07/19 12:03 Last Infusion: 07/07/19 12:16 Dose: Infused Documented by: Ceftriaxone Sodium (Rocephin 1000 Mg Er Piggyback) 1,000 mg in 100 mls @ 200 mls/hr IV ONCE ONE Stop: 07/07/19 13:15 Last Infusion: 07/07/19 13:31 Dose: Infused Documented by: Sodium Chloride (Sodium Chloride 0.9%) 1,000 mls @ 999 mls/hr IV .Q1H1M ONE Stop: 07/07/19 14:12 Last Infusion: 07/07/19 14:32 Dose: Infused Documented by: Ciprofloxacin/Dextrose (Cipro) 400 mg in 200 mls @ 200 mls/hr IV Q12H [facility]; Protocol Stop: 08/06/19 16:16 Last Infusion: 07/07/19 21:57 Dose: Infused Documented by: Metronidazole (Flagyl) 500 mg in 100 mls @ 100 mls/hr IV Q8H [facility]; Protocol Stop: 08/06/19 16:16 Last Infusion: 07/07/19 20:49 Dose: Infused Documented by: Insulin Human Regular (Humulin R) 20 units SC ACHSINS ONE Stop: 07/07/19 20:15 Last Admin: 07/07/19 21:20 Dose: 20 units Documented by: Ketorolac Tromethamine (Toradol) 30 mg IV ONCE ONE Stop: 07/07/19 20:10 Last Admin: 07/07/19 20:58 Dose: 30 mg Documented by: Metoclopramide HCl (Reglan) 10 mg IV ONCE ONE Stop: 07/07/19 20:09 Last Admin: 07/07/19 20:58 Dose: 10 mg Documented by: Morphine Sulfate (Morphine Sulfate) 4 mg IV ONCE ONE Stop: 07/07/19 11:37 Last Admin: 07/07/19 11:43 Dose: 4 mg Documented by: Morphine Sulfate (Morphine Sulfate) 4 mg IV ONCE ONE Stop: 07/07/19 12:51 Last Admin: 07/07/19 12:58 Dose: 4 mg Documented by: Morphine Sulfate (Morphine Sulfate) 4 mg IV ONCE ONE Stop: 07/07/19 14:12 Last Admin: 07/07/19 14:16 Dose: 4 mg Documented by: Morphine Sulfate (Morphine Sulfate) 4 mg IV ONCE ONE Stop: 07/07/19 16:37 Last Admin: 07/07/19 16:39 Dose: 4 mg Documented by: Ondansetron HCl (Zofran) 4 mg IV ONCE ONE Stop: 07/07/19 11:35 Last Admin: 07/07/19 11:44 Dose: 4 mg Documented by: Sumatriptan Succinate (Imitrex) 6 mg SC ONCE ONE Stop: 07/07/19 20:11 Last Admin: 07/07/19 20:58 Dose: 6 mg Documented by: - Disposition Disposition: Short Term Hospital Inpatient Condition: Serious Discharge Date: 07/08/19 Discharge Time: 23:41
[2019-07-09] MEDS: metroNIDAZOLE/SODIUM CHLORIDE 500 MG/100 ML BAG IV SCH
[2019-07-09 00:27] VITALS: BP 129/71
== END 2019-07-09 00:40 | disposition short-term general hospital (02) | DRG 871 ==
LOC: ER 11:07 → MS 16:33
PROVIDERS: ADMIT Family Medicine; ATTEND Family Medicine
DX: D72.825 Bandemia; K50.019 Crohn's disease of small intestine with unspecified complications; E86.0 Dehydration; E87.1 Hypo-osmolality and hyponatremia; E11.65 Type 2 diabetes mellitus with hyperglycemia; A41.9 Sepsis, unspecified organism; K65.9 Peritonitis, unspecified
CPT/HCPCS: 36415; 74019; 74020; 74177; 80048; 80053; 81001; 82150; 83036; 83605; 83690; 84145; 85007; 85025; 87040; 93005; 94660; 96361; 96365; 96367; 96375; 96376; 99285; J0131; J2405; Q9963; Q9967